=== PATIENT | female | born 1945 ===

== ENCOUNTER 2019-01-19 14:01 | Outpatient (CLI) | payer MEDICAID | END 2019-01-19 14:02 | disposition home or self-care (01) | LOC: C.MAMMO 14:01 | DX: Z85.3 Personal history of malignant neoplasm of breast (principal) ==

== ENCOUNTER 2019-01-26 13:45 | Outpatient (CLI) | payer MEDICAID | END 2019-01-26 13:46 | disposition home or self-care (01) | LOC: C.USIC 13:45 | DX: Z12.39 Encounter for other screening for malignant neoplasm of breast (principal); Z85.3 Personal history of malignant neoplasm of breast ==